=== PATIENT | male | born 1960 | race Caucasian/White ===

== ENCOUNTER 2019-01-20 11:38 | Inpatient (IN) ==
--- NOTE | 2019-01-20 06:21 | Discharge Summary ---
<Rylie Kathleen - Last Filed: 01/20/19 08:03> Orders not resulted at time of discharge: Pending orders 01/20/19 01:00 XR hip complete RT [XR] Routine Hemoglobin and Hematocrit [HEME] Routine Date of Encounter: 01/20/19 - Hospital Course Hospital course: Mr. Lazo is a 58 year old male - Time Spent with Patient Total time spent providing and/or coordinating discharge services: - Discharge Medications Prescriptions: New Docusate Sodium [Colace] 100 mg PO BID 5 Days #10 capsule OxyCODONE Immed Rel [Roxicodone 5 MG] 5 mg PO Q6HR PRN 5 Days #20 tablet PRN Reason: Severe Pain Continued Trazodone HCl 200 mg PO HS Gabapentin [Neurontin] 800 mg PO TID Etanercept [Enbrel] 25 mg SQ QWEEK Aripiprazole [Abilify] 20 mg PO HS Home Medications: Aripiprazole [Abilify] 20 mg PO HS 01/20/19 [History] Docusate Sodium [Colace] 100 mg PO BID 5 Days #10 capsule 01/20/19 [Rx] Etanercept [Enbrel] 25 mg SQ QWEEK 01/20/19 [History] Gabapentin [Neurontin] 800 mg PO TID 01/20/19 [History] OxyCODONE Immed Rel [Roxicodone 5 MG] 5 mg PO Q6HR PRN 5 Days #20 tablet 01/20/19 [Rx] Trazodone HCl 200 mg PO HS 01/20/19 [History] Allergies/Adverse Reactions: Allergy/AdvReac Type Severity Reaction Status Date / Time tramadol [From Ultram] Allergy Severe Seizure Verified 01/21/19 06:00 [facility] - Patient Status Disposition: Home Health Service Condition: Good - Discharge Instructions Follow Up With: Rylie Kathleen PAC [Physician Reed Worker] - 01/30/19 9:45 am (also february 07 at 0915) Ino Hawkins MD [Partnered Physician] - 02/19/19 4:00 pm [facility] [Primary Care Provider[facility] - Additional Instructions: Discharge Instructions: Total Hip Replacement Please call [facility] ([phone]), your Primary Care Physician, or report to the Emergency Room if you have any of the following symptoms: Nausea, vomiting, fever greater that 101.5, swelling, chest pain, shortness of breath, increased pain/redness/drainage/odor for your incision site, numbness/tingling, or any other concerning symptoms. ACTIVITY:Weight-bearing as tolerated for 8 weeks with hip dislocation precautions that physical therapy taught you. You may progress as tolerated under the guidance of your physical therapist. You do not need to sleep with a pillow between your legs. You can also seep on the operative side or on your stomach. Incentive Spirometer 10 times an hour. MEDICATIONS: Upon discharge resume your home medications. Take all the medications as prescribed. Take a stool softener if taking narcotic pain medications. Stool softeners are only effective if you drink enough fluids. Drink 6-8 glass of water or fluids a day, unless this is not allowed for another health problem. Despite using stool softeners, if you haven't had a bowel movement in 3 days, please switch to a gentle laxative. Gentle laxatives are sold over the counter. You should have a bowel movement within 24 hours, if not call the office. You will be discharged from the hospital with a prescription for pain medication. You are encouraged to decrease the use of narcotic pain medication as tolerated. Should you require a refill, please call the office. [facility] prescribes narcotic pain medication for only 4-6 weeks after surgery. If you require pain medication beyond this time period, you may be referred to your Primary Care Physician or to the Pain Clinic for further evaluation. Plan ahead for refills on pain medication as many narcotics either need to be picked up at the office or mailed. It is best to call 48-72 hours in advance of needing a prescription refill so you don't run out of medication. To help control the post-operative pain, you may take NSAIDs (Aleve,Advil, Motrin, ibuprofen, naprosyn) or Tylenol as prescribed on the bottle in addition to the pain medication. ANTICOAGULATION (blood thinners): Continue your Aspirin, Lovenox or Coumadin as prescribed to help prevent a blood clot in the leg or in the lungs. As long as your incision remains dry and you tolerate the NSAIDs (Aleve, Advil, Motrin, Ibuprofen, Naprosyn), it is OK to use the NSAIDS while you are taking your anticoagulation medication. Should your incision start to drain, stop the NSAID and contact our office. Common symptoms of blood clot in the legs include: localized pain, swelling, calf tenderness, redness or discoloration of the skin. Blood clot in the lung symptoms include: shortness of breath, rapid pulse, sweating, and chest pain that worsens with deep breathing, coughing up blood, lightheadedness, feelings of anxiety. If you experience any of these symptoms notify your physician immediately, go to the emergency room, or if having trouble breathing, call 911. WOUND CARE: Leave the dressing on for 7 to 10days. You may change the dressing if it is saturated greater than 50%. Do not get the dressing wet at anytime. Wash your hands with antibacterial soap, rinse and dry prior to any wound care. If you have el the visiting nurse or rehab facility can remove the stapes 10-14 days after surgery and place steri-strips across the wound. Leave the steri-strips in place until they fall off on their own. You may let water from the shower run on top of the steri-strips. If you do not have a visiting nurse or rehab facility, you will need to return to the office at 10-14 days for the el to be removed. If you have itching or redness around the dressing call the office. FOLLOW-UP: Please follow up with your surgeon in the orthopedic clinic in 6 weeks from the day of surgery. If you have el that need to be removed, you will need to come back to the office in 10-14 days from the day of surgery. <Rylie Chatterjee - Last Filed: 01/21/19 13:44> Orders not resulted at time of discharge: Pending orders 01/20/19 01:00 XR hip complete RT [XR] Routine Hemoglobin and Hematocrit [HEME] Routine Date of Encounter: 01/21/19 Time of Encounter: 11:40 - Discharge Diagnosis (1) Status post total hip replacement, right Priority: Primary Status: Acute (2) Osteoarthritis of right hip Priority: Primary Status: Chronic Qualifiers: Osteoarthritis type: unspecified Qualified Code(s): M16.11 - Unilateral primary osteoarthritis, right hip (3) Hepatitis C Priority: Secondary Status: Chronic Qualifiers: Viral hepatitis chronicity: unspecified Hepatic coma status: without hepatic coma Qualified Code(s): B19.20 - Unspecified viral hepatitis C without hepatic coma (4) HTN (hypertension) Priority: Secondary Status: Chronic Qualifiers: Hypertension type: unspecified Qualified Code(s): I10 - Essential (primary) hypertension (5) Obesity (BMI 30-39.9) Priority: Secondary Status: Chronic (6) Rheumatoid arthritis Priority: Secondary Status: Chronic Qualifiers: Rheumatoid arthritis location: unspecified site Rheumatoid factor presence: unspecified presence Qualified Code(s): M06.9 - Rheumatoid arthritis, unspecified (7) Acid reflux Priority: Secondary Status: Chronic Qualifiers: Esophagitis presence: esophagitis presence not specified Qualified Code(s): K21.9 - Gastro-esophageal reflux disease without esophagitis (8) Cirrhosis Priority: Secondary Status: Chronic Qualifiers: Hepatic cirrhosis type: unspecified hepatic cirrhosis Ascites presence: unspecified Qualified Code(s): K74.60 - Unspecified cirrhosis of liver - Hospital Course Hospital course: Mr. Lazo is a 58 year old male status post right THR 01/20/19 with medical histroy of Hepatitis C, HTN, obesity, RA, reflux, cirrhosis. He participated in therapy and progressing well. Uneventful hospital course. Stable for discharge. Will follow up in [facility] office next week. PCR - POD#1 s/p right THR 01/20/19 Patient seen at bedside, without complaints. A&O x 3 Afebrile, vital signs stable. Dressing had minimal drainage and were intact. No calf tenderness to palpation, good dorsiflexion of foot. sensation intact distally. Labs reviewed. H/H - 13.1/40.7 stable, asymptomatic Pain control: adequate Participating in PT. DVT prophylaxis - Plan was for lovenox for 2 weeks due to known cirrhosis and hepatitis C. This medication was going to cost around $180 dollars and patient did not want this medication. He states that he can regularly take tylenol and NSAIDs with no issues, states he has never been told not to take these medications. He denies ever having a GI bleed. Patient requesting to switch to aspirin for his DVT prophylaxis and understands he will be at a higher risk of bleeding and will watch for symptoms. All questions and concerns addressed. Educated on use of incentive spirometer. Encouraged ambulation and proper hydration. Patient educated on post-operative restrictions and post-operative care. Assessment and plan: Continue with postoperative care Discharge plan: Home with home health, discharge today. - Time Spent with Patient Total time spent providing and/or coordinating discharge services: Date of admission: 01/20/19 [facility] Consults: 01/20/19 15:55 Consult to Dowel Maker [CONS] Routine Reason for SW Consult: discharge planning 01/20/19 15:57 Consult to Nurse Navigator [CONS] Routine Comment: ortho navigator Consult to Nutrition [CONS] Routine Comment: Consulting Provider: NUTRITION Reason for Dietary Consult: Other Other:: Proper nutrition to facilitate wound healing Consult to Occupational Therapy [CONS] Routine Comment: Evaluate, develop and implement POC Reason for Consult: total hip replacement Does patient have active BEDREST order?: No Is patient medically & hemodynamically stable?: Yes Consult to Physical Therapy [CONS] Routine Comment: Evaluate, develop and implement POC Reason for Consult: total hip replacement Does patient have active BEDREST order?: No Is patient medically & hemodynamically stable?: Yes Consult to Dowel Maker [CONS] Routine Reason for SW Consult: post op joint replacement RT Post Op Consult [CONS] Routine Discharging clinician: Ino Hawkins Anticipated date of discharge: 01/21/19 Labs on day of discharge: Short CBC 01/21/19 01/21/19 Range/Units 05:36 00:50 WBC 5.0 (4.3-11.1) K/mcL Hgb 13.1 12.7 L (12.9-16.9) g/dL Hct 40.7 39.2 (37.5-50.1) % Plt Count 83 L (140-400) K/mcL Neutrophils # 3.3 (1.6-8.9) K/mcL BMP 01/21/19 Range/Units 05:36 Sodium 138 (136-145) mEq/L Potassium 3.9 (3.5-5.1) mEq/L Chloride 99 (98-107) mEq/L Carbon Dioxide 30 H (23-29) mEq/L BUN 11 (6-20) mg/dL Creatinine 1.01 (0.70-1.30) mg/dL Glucose 113 H (70-105) mg/dL Calcium 8.5 L (8.6-10.3) mg/dL - Impressions Hip X-Ray 01/20/19 01:00 IMPRESSION: Total hip arthropasty without acute hardware complication. D/ / Dusty Cruz MD / Dusty Cruz MD Interpreting Provider: Dusty Cruz MD - Patient Status Functional capacity at discharge: uses cane/walker Overall status at discharge: patient is back to baseline - Diet and Activity Activity: ambulate only with your walker, as per physical therapy Diet: advance to your usual diet
--- NOTE | 2019-01-20 11:56 | History & Physical Report ---
Date of Encounter: 01/20/19 Time of Encounter: 11:56 24 Hour HP Update - Instructions Instructions: If the History and Physical is less than 30 days old and was completed prior to A.M. admission and or procedure and has NOT been updated on calendar day of procedure please complete this update prior to performing procedure. - Update Patient reports changes in Medical Condition: No Changes in examination, assessment, or condition: No Changes in Medication: No Preop tests/diagnostics Reviewed: Yes Surgery Remains Indicated: Yes Consent for Planned Operative Procedure(s) Verified: Yes - Pre-Operative Checklist Preoperative Checklist Indicated: No Prophylactic Antibiotic Ordered: Yes Is VTE Prophylaxis Indicated?: Yes
--- NOTE | 2019-01-20 12:02 | Anesthesia Evaluation PreOp ---
Date of Encounter: 01/20/19 Time of Encounter: 12:23 - Past History Planned Operation: Right total hip arthroplasty Robotic Cardiac History: HTN Pulmonary History: Denies Any Significant HX GASTROENTEROLOGY NURSE PRACTITIONER History: Denies Any Significant HX Other Medical History: Hepatic (hep c cirrhosis), GERD, Other (pt is a church and refuses blood transfusion) Anesthesia History: No Prior Anesthetic Complications, Past Anesthesia (EGD and colonoscopy) Alcohol Use: none Drug use: none Medications and Allergies Docusate Sodium [Colace] 100 mg PO BID 5 Days #10 capsule 01/20/19 [Rx] Enoxaparin [Lovenox] 40 mg SQ Q12HR 14 Days #28 syr 01/20/19 [Rx] OxyCODONE Immed Rel [Roxicodone 5 MG] 5 mg PO Q6HR PRN 5 Days #20 tablet 01/20/19 [Rx] Allergy/AdvReac Type Severity Reaction Status Date / Time No Known Allergies Allergy Verified 04/10/18 11:41 - Meds/Allergy Pre-op Review Medications Reviewed: Yes Allergies Reviewed: Yes Beta Blockers on Current Med List: No Anesthesia Results - Labs Laboratory Tests 01/08/19 01/08/19 01/08/19 18:21 18:21 18:21 WBC 5.6 Hgb 14.9 Plt Count 92 L PT 12.1 INR 1.1 APTT 30.6 Sodium 138 Potassium 4.2 Chloride 103 Carbon Dioxide 28 BUN 15 Creatinine 0.93 Glucose 110 H Anesthesia Exam O2 Sat Height 1.73 m Weight 102.058 kg Weight: 102kg NPO (# of Hours): >8 - HEENT Pupil (Motor): Pupils equal, EOMI Mallampati: II Teeth: Edentulous (upper) Denture Type: Upper: Complete, Lower: Complete Oral Opening: Greater than 3 - GASTROENTEROLOGY NURSE PRACTITIONER LOC: Oriented GASTROENTEROLOGY NURSE PRACTITIONER Motor: Normal RUE, Normal LUE, Normal RLE, Normal LLE, Normal Face GASTROENTEROLOGY NURSE PRACTITIONER Sensory: Normal: RUE, LUE, RLE, LLE, Face - Cardiac Rhythm: Regular - Pulmonary Breath Sounds: bilateral Clear Respiratory Effort: Symmetrical Anesthesia Assess/Plan ASA Score: 3 Level of consciousness: Cooperative Anesthetic Plan: General (plan b), MAC, Spinal (plan A) Monitoring Plan: Standard Monitors Recovery Plan: PACU
[2019-01-20] MEDS ORDERED: Gabapentin 300 MG CAPSULE PO ONE (12:09)
[2019-01-20] MEDS ORDERED: Celecoxib 100 MG CAPSULE PO ONE (12:09)
[2019-01-20] MEDS ORDERED: Acetaminophen IV 1,000 MG/100 ML INFUS..BTL IVPB ONE (12:09)
[2019-01-20] MEDS ORDERED: *HR* OxyCODONE ER (12 HR) 10 MG TABLET PO ONE (12:09)
[2019-01-20] MEDS ORDERED: Propofol 500 MG/50 ML INFUS..BTL ONE (12:14)
[2019-01-20] MEDS ORDERED: *HR* Midazolam HCl 2 MG/2 ML VIAL ONE (12:14)
[2019-01-20] MEDS ORDERED: *HR* FentaNYL (PF) 100 MCG/2 ML VIAL ONE (12:14)
[2019-01-20] MEDS ORDERED: Lidocaine -MPF 2% 2 ML VIAL ONE (12:15)
[2019-01-20] MEDS ORDERED: Ethanol\\Acetic Acid\\Na Ace\\Ben 1,000 ML IRRIG.SOLN IR ONE (12:17)
[2019-01-20] MEDS ORDERED: CeFAZolin Syr 2,000MG/20 ML 2,000 MG/20 ML SYRINGE IVPB ONE (12:29)
[2019-01-20] MEDS ORDERED: Ringers Solution, Lactated 1,000 ML IVC SCH (12:30)
[2019-01-20] MEDS ORDERED: Tranexamic Acid 1,000 MG/10 ML VIAL ONE (13:18)
[2019-01-20] MEDS ORDERED: EPHEDrine 50 MG/ML VIAL ONE (13:24)
--- NOTE | 2019-01-20 13:45 | Anesthesia Procedures ---
Date of Encounter: 01/20/19 Time of Encounter: 12:50 Procedures: Anesthesia - Epidural/Spinal Patient examined: Yes Supplemental Oxygen Rate (L/min): 2 Sedation: Versed (mg): 2 Sedation: Fentanyl (mcg): 100 Site Prep: Aseptic Technique, Sterile prep and drape, 0.5% Chlorhexidine/Alcohol Patient position: upright Local Anesthetic: Lidocaine 1% Amount of Local Anesthetic used: 2 Interspace Used: L4-L5 Blood: No CSF: Yes Paresthesia: No Spinal Needle Gauge: 25 Spinal Dose: 2.4mL of 0.5% Marcaine MPF in 0.9% NaCl Procedure: Spinal completed using sterile technique. Pt tolerated without difficulty. Pt noted legs and feet starting to feel warm and heavy within a minute of insertion. Vitals + FHT's: Vital Signs/O2 Sat/Glucose, Most Recent Temp Pulse Resp BP Pulse Ox 97.8 F 73 16 163/101 95 01/20/19 12:28 01/20/19 12:54 01/20/19 12:54 01/20/19 12:54 01/20/19 12:54
[2019-01-20] MEDS ORDERED: *HR* Propofol 200 MG/20 ML VIAL IVP ONE ×2 (13:54→14:16)
--- NOTE | 2019-01-20 14:11 | Orthopedic Operative Note ---
Date of procedure: 01/20/19 Pre-op diagnosis: Right hip arthritis Post-op diagnosis: same Procedure: Procedure: Right Total Hip Replacment robotic-assisted Estimated blood loss: 200 cc Hardware: Metal and polyethylene replacement. Jackeline DM Cup: 56 cup Femoral size 5 Anato Anteverted stem Head:8 head with Tamanna Procedural Notes: Grade 4 arthritic changes femoral head acetabular socket, procedure performed with robotic assistance. 4 mm short operative versus nonoperative leg is measured by preoperative CT scan Operative procedure: The patient was brought to the operating room and placed on the operating room table. After general anesthesia was administered the patient was placed in the lateral decubitus position with the operative leg up. All pressure points were padded appropriately and the head was stabilized in the neutral position. The operative extremity was prepped and draped in the sterile surgical fashion patient received IV antibiotic prior to skin incision. 3 Steinmann pins were placed in the iliac crest 3 cm proximal to the anterior superior iliac spine this was for the robotic-assisted sensor. This was done through a small 2 cm incision. A standard posterior approach is made to the operative hip, the incision was made through the skin and subcutaneous tissue hemostasis was obtained with Bovie cautery. Using careful sharp dissection the fascia was identified and incised exposing the external rotators. The greater trochanter was marked, and length was measured at this time utilizing robotic assistance. The external rotators were released off the greater trochanter and tagged with #2 FiberWire suture. The capsule was T'd open and the hip was brought into internal rotation. Patient noted to have grade 4 arthritic changes femoral head. The femoral neck cut was made at the appropriate level roughly 15 mm proximal to the lesser trochanter aced on preoperative templating. An anterior capsulotomy was performed for the anterior retractor. Soft tissues removed from the acetabulum. Patient noted to have grade 4 arthritic changes acetabulum. The acetabulum reference point was confirmed. The acetabulum was then mapped with robotic assistance. Based on the preoperative plan the acetabulum was reamed in one step with a 56 reamer. The 56 acetabulum was impacted with robotic assistance and 40 degrees of abduction and 20 degrees of anteversion. The hip was brought back in to internal rotation and prepared with the box storage worker followed by the canal finder followed by the reaming process to a size 13 broaching process in 20 degrees anteversion. It was broached up to the appr opriate size 5 Trial reduction revealed leg lengths close to normal. The femoral implant was impacted in place in 20 degrees of anteversion. Trial reduction found the hip to be stable with 8 head and Tamanna. The trials were removed and the real implants were impacted in place. The hip was reduced, patient had robotic confirmed leg length of 2 mm longer than the contralateral side. The hip had excellent stability with forward flexion to 90 degrees adduction of 30 degrees and internal rotation of 60 degrees. The hip had no shuck. The hip sat with an antibacterial solution. It was irrigated out with 2 L of pulse irrigation. The Steinmann pins were removed. The hip was closed by the PA. The deep tissue was irrigated and closed deep with #1 PDS suture superficially with 0 PDS suture and skin was closed with Dermabond and zip tie. The patient was placed in a sterile dressing and abduction pillow. The patient was extubated and transferred to the recovery room in stable condition. Anesthesia: spinal Surgeon: Ino Hawkins Was there an assistant center manager present: Yes Beef Farmer: Rylie Kathleen Estimated blood loss (cc): 200 Condition: stable Disposition: PACU
[2019-01-20] MEDS ORDERED: *HR* PHENYLEPHRINE 1,000 MCG/10 ML SYRINGE IVP ONE (14:28)
[2019-01-20] MEDS ORDERED: HYDROcodone BIT/Homatropine 5 MG TABLET PO PRN (15:57)
[2019-01-20] MEDS ORDERED: Ondansetron 4 MG/2 ML VIAL IVP PRN (15:57)
[2019-01-20] MEDS ORDERED: MOM Conc 10 ML UD.LIQ PO PRN (15:57)
[2019-01-20] MEDS ORDERED: *HR* Promethazine 25 MG/ML VIAL IVP PRN (15:57)
[2019-01-20] MEDS ORDERED: Gabapentin 300 MG CAPSULE PO SCH (15:57)
[2019-01-20] MEDS ORDERED: Temazepam 15 MG CAPSULE PO PRN (15:57)
[2019-01-20] MEDS ORDERED: traMADol 50 MG TABLET PO PRN (15:57)
[2019-01-20] MEDS ORDERED: Naloxone 0.4 MG/ML INJ IVP PRN (15:57)
[2019-01-20] MEDS ORDERED: Sennosides 8.6 MG TABLET PO PRN (15:57)
[2019-01-20] MEDS: *HR* OxyCODONE Immed Rel 5 MG TABLET PO PRN ×2 (16:30→20:34)
[2019-01-20] MEDS: Ascorbic Acid 500 MG TABLET PO SCH (16:31)
--- NOTE | 2019-01-20 17:06 | Anesthesia Evaluation Post Op ---
Date of Encounter: 01/20/19 Time of Encounter: 17:06 - Vital Signs Vital Signs: Vital Signs/O2 Sat, Most Current Temp Pulse Resp BP Pulse Ox 97.5 F L 82 20 115/82 94 01/20/19 15:11 01/20/19 15:11 01/20/19 15:11 01/20/19 15:11 01/20/19 15:11 - Lungs Lungs: Clear Ascult./Percussion - Airway Airway: Non-obstructed - Cardiovascular Regular Rate - Mental Status Mental Status: Alert & Oriented, Answers Appropriately - Pain Pain Scale: 0 Pain Scale used: Numeric (1 - 10) - Nausea Vomiting Nausea Vomiting: Not Present - Hydration Hydration: Ice chips - Discharge PostOp Status: Transfer Patient to floor
[2019-01-20] MEDS: *HR* Enoxaparin 30 MG/0.3 ML SYRINGE SQ SCH (17:46)
[2019-01-20] MEDS ORDERED: *HR* Enoxaparin 30 MG/0.3 ML SYRINGE SQ SCH (18:00)
[2019-01-20] MEDS: Ringers Solution, Lactated 1,000 ML IVC SCH (19:48)
[2019-01-20] MEDS: Gabapentin 400 MG CAPSULE PO SCH (19:51)
[2019-01-20] MEDS ORDERED: traZODone 50 MG TABLET PO SCH (21:00)
[2019-01-20] MEDS ORDERED: ARIPiprazole 10 MG TABLET PO SCH (21:00)
[2019-01-21] MEDS: *HR* OxyCODONE Immed Rel 5 MG TABLET PO PRN ×4 (00:54→13:23)
[2019-01-21 01:29] LABS: Hematocrit 39.2 % (37.5-50.1); Hemoglobin 12.7 g/dL (12.9-16.9)
[2019-01-21] MEDS: *HR* Enoxaparin 30 MG/0.3 ML SYRINGE SQ SCH (04:31)
--- NOTE | 2019-01-21 06:38 | Orthopedics Progress Note ---
Date of Encounter: 01/21/19 Time of Encounter: 06:37 Subjective Interval history: Patient was seen this morning doing well without complaints. Afebrile vital signs stable. Operative extremity: Neurovascularly intact Dressing clean dry and intact Calves nontender Assessment and plan: Continue with postoperative care Hematocrit 39 plan for discharge today Objective Vital signs: Vital Signs Temp Pulse Resp BP Pulse Ox 01/21/19 03:12 98.4 F 77 15 105/77 93 01/20/19 23:03 97.9 F 76 15 103/70 93 01/20/19 18:32 97.8 F 90 17 137/90 96 01/20/19 15:57 98.4 F 80 16 105/72 97 01/20/19 15:11 97.5 F L 82 20 115/82 94 01/20/19 15:01 80 20 131/82 98 01/20/19 14:51 98 20 117/85 94 01/20/19 14:41 98.2 F 72 20 114/75 100 01/20/19 12:54 73 16 163/101 95 01/20/19 12:28 97.8 F 76 18 134/96 95 Intake and Output 01/20/19 01/20/19 01/21/19 15:59 23:59 07:59 Intake Total 220 / 320 100 / 320 Output Total 200 / 1000 800 / 1000 Balance 20 / -680 -700 / -680 Intake: IV Fluids 20 / 120 100 / 120 Ancef Syringe 2,000 MG/20 ML 2, 20 / 20 000 mg In 20 ml @ 200 mls/hr IVPB PREOP ONE Rx#:[id number] Ancef 2,000 MG In 0.9 % Sodium 100 / 100 Chloride 100 ML @ 200 mls/hr IVPB Q8H [place] Rx#:[id number] Oral 200 / 200 Output: Urine 800 / 800 Estimated Blood Loss 200 / 200 Other: Weight 102.058 kg 102.1 kg Patient Weight 01/21/19 23:59 Weight 102.1 kg - Labs CBC & BMP: 01/21/19 00:50 Labs: Abnormal lab results Hgb 12.7 g/dL (12.9-16.9) L 01/21/19 00:50 Consult Discharge Plan - Plan [facility]errals: [facility] [Primary Care Provider] -
[2019-01-21 07:03] LABS: Hemoglobin 13.1 g/dL (12.9-16.9); Immature Granulocytes % 0.4 % (0-4)
[2019-01-21 07:06] LABS: Basophils % 0.2 %; Eosinophils # 0.1 K/mcL (0.0-0.6); Hematocrit 40.7 % (37.5-50.1); Immature Platelets 3.8 % (1.1-6.1); Lymphocytes % 20.5 %; Mean Corpuscular HGB Conc 32.2 g/dL (31.6-35.5); Mean Corpuscular Hemoglobin 27.8 pg (28.0-33.3); Mean Corpuscular Volume 86.4 fL (83.0-100.0); Mean Platelet Volume 10.6 fL (9.4-12.4); Monocytes % 12.9 %; Red Blood Count 4.71 M/mcL (4.19-5.50); Red Cell Distribution Width 13.6 % (11.5-14.5)
[2019-01-21 07:15] LABS: Monocytes # 0.7 K/mcL (0.0-1.3); Neutrophils # 3.3 K/mcL (1.6-8.9); Platelet Count 83 K/mcL (140-400)
[2019-01-21 07:16] LABS: Platelet Estimate Decreased (Normal)
[2019-01-21 07:23] LABS: BUN/Creatinine Ratio 11 (6-26); Blood Urea Nitrogen 11 mg/dL (6-20); Calcium 8.5 mg/dL (8.6-10.3); Carbon Dioxide 30 mEq/L (23-29); Chloride 99 mEq/L (98-107); Glucose 113 mg/dL (70-105); Osmolality,Calculated 286 (280-300); Potassium 3.9 mEq/L (3.5-5.1); Sodium 138 mEq/L (136-145); eGFR For African Americans > 60 (> 60); eGFR For Non-African Americans > 60 (> 60)
[2019-01-21] MEDS: Gabapentin 400 MG CAPSULE PO SCH (08:23)
[2019-01-21] MEDS: Ascorbic Acid 500 MG TABLET PO SCH (08:23)
[2019-01-21] MEDS ORDERED: Multivit/Ca/Min/Fe/FA 1 TAB TABLET PO SCH (09:00)
[2019-01-21 10:22] VITALS: BP 123/84
[2019-01-21] MEDS: Ringers Solution, Lactated 1,000 ML IVC SCH (10:37)
--- NOTE | 2019-01-21 13:46 | Physician Discharge Referral ---
Home Health/Hosp Referral Info Transfer to: Home Health Attending Provider: Dr. Hawkins - Diagnosis (1) Status post total hip replacement, right Priority: Primary Status: Acute (2) Osteoarthritis of right hip Priority: Primary Status: Chronic (3) Hepatitis C Priority: Secondary Status: Chronic (4) HTN (hypertension) Priority: Secondary Status: Chronic (5) Obesity (BMI 30-39.9) Priority: Secondary Status: Chronic (6) Rheumatoid arthritis Priority: Secondary Status: Chronic (7) Acid reflux Priority: Secondary Status: Chronic (8) Cirrhosis Priority: Secondary Status: Chronic - Respiratory Orders None Smoking Cessation: Smoking cessation has been advised. For more information, call the [place] Tobacco Quit Line at 6-328-FHRF-NOW. - Diet/Nutrition Diet/Nutrition Orders: Regular - Activity Activity Orders: Ambulate, Chair, Walker - Services Needed Following services are medically necessary services: Nursing, Home Health Aide, Occupational Therapy Home Care Orders: Opsite dressing, leave intact until first post-operative visit. If dressing becomes >50% saturated, contact office, remove dressing and place appropriate dressing in its place. Do not allow for dressing to get wet. Zipline/[place] in place, plan to remove at post-operative day #14-16. Total Joint Precautions x 6 weeks Apply cold therapy wrap 3-6x/day for 20 minutes at a time. Encourage ambulation throughout the day Use Incentive spirometer 10x/hour. Elevate affected extremity above heart as tolerated. Brace: Wear hip abductor brace at night x 6 weeks. - Transfer Medications Home Medications: Aripiprazole [Abilify] 20 mg PO HS 01/20/19 [History] Docusate Sodium [Colace] 100 mg PO BID 5 Days #10 capsule 01/20/19 [Rx] Etanercept [Enbrel] 25 mg SQ QWEEK 01/20/19 [History] Gabapentin [Neurontin] 800 mg PO TID 01/20/19 [History] OxyCODONE Immed Rel [Roxicodone 5 MG] 5 mg PO Q6HR PRN 5 Days #20 tablet 01/20/19 [Rx] Trazodone HCl 200 mg PO HS 01/20/19 [History] Allergies/Adverse Reactions: Allergy/AdvReac Type Severity Reaction Status Date / Time tramadol [From Ultra] Allergy Severe Seizure Verified 01/21/19 06:00 Certification: Further, I certify that my clinical findings support that this patient is homebound (i.e. absences from home require considerable and taxing effort and are for medical reasons or zoroastrianism services or infrequently or short duration when for other reasons) because: Homebound Reason: Post-surgery restriction and or conditions limit ability to leave home Attestation: My signature below is to certify that this patient is under my care and that I, or nurse practitioner, or a physician clinical trials assistant working with me, has a [id number] encounter with this patient.
== END 2019-01-21 14:40 | disposition home health service (06) | DRG 470 ==
LOC: SAMDAY 11:38 → 3NENU 15:19
PROVIDERS: ADMIT Orthopaedic Surgery; ATTEND Orthopaedic Surgery